=== PATIENT | female | born 1950 | race Caucasian/White ===

== ENCOUNTER 2025-04-04 11:53 | Observation (INO) ==
[2025-04-04] MEDS ORDERED: ULTRAM PO PRN (13:11)
[2025-04-04] MEDS ORDERED: MORPHINE SULFATE INJ 2 MG INJ IVP PRN (13:11)
[2025-04-04] MEDS ORDERED: TYLENOL 325 MG TAB PO PRN (13:11)
[2025-04-04 13:46] VITALS: BMI 35.4
[2025-04-04 14:58] LABS: MEAN PLATELET VOLUME 7.7 fL (7.4-11.0); RED CELL DISTRIBUTION WIDTH 16.1 % (11.6-16.5)
--- NOTE | 2025-04-04 15:10 | RAD ---
EXAM: CHEST, 1 VIEW HISTORY: sob; COMPARISON: No relevant prior studies were available for comparison at the time of interpretation. TECHNIQUE: CHEST, 1 VIEW FINDINGS: Chest: Lines and tubes: None Mediastinum: Cardiac and mediastinal shadow is within normal limits for size and contour. Pulmonary vessels: No pulmonary vascular congestion. Lung grossman: No suspicious airspace opacity. Pleura: No effusion. No pneumothorax. Bones and soft tissues: No acute osseous or soft tissue abnormality. IMPRESSION: 1. No acute cardiopulmonary abnormality THIS IS AN ELECTRONICALLY VERIFIED FINAL REPORT 04/04/2025 3:06 PM - Electronically signed by Jimmy Interiano MD
[2025-04-04 15:23] LABS: CREATININE 1.31 mg/dL (0.55-1.02); eGFR NON BLACK RACES 42 (>60)
[2025-04-04] MEDS: PROTONIX TAB 40 MG PO SCH (15:53)
[2025-04-04] MEDS: ROCEPHIN VIAL 1 GRAM 1 G in NS 100 ML IV 100 ML IV SCH (15:53)
[2025-04-04] MEDS: LASIX IVP ONE (17:42)
--- NOTE | 2025-04-04 17:44 | EKG ---
Test Reason : sob Blood Pressure : */* mmHG Vent. Rate : 79 BPM Atrial Rate : 79 BPM P-R Int : 144 ms QRS Dur : 82 ms QT Int : 382 ms P-R-T Axes : 58 6 58 degrees QTc Int : 438 ms Sinus rhythm with marked sinus arrhythmia Nonspecific ST abnormality Abnormal ECG No previous ECGs available Confirmed by Carson Ojeda MD ([id number]) on 04/05/2025 5:48:18 AM Referred By: Confirmed By: Carson Ojeda MD
[2025-04-04] MEDS: PULMICORT NEB TX 0.5 MG NEB SCH (21:00)
[2025-04-04] MEDS: DUONEB 0.5 MG/3 MG (3 mL) NEB SCH (21:00)
[2025-04-04] MEDS: NEURONTIN CAP 100 MG PO SCH (21:47)
[2025-04-04] MEDS: MIRAPEX TAB 0.25 MG PO SCH (21:47)
[2025-04-05] MEDS: NS 250 ML IV 250 ML IV ONE (03:42)
[2025-04-05 05:48] LABS: MEAN PLATELET VOLUME 8.0 fL (7.4-11.0); RED CELL DISTRIBUTION WIDTH 15.7 % (11.6-16.5)
[2025-04-05 06:06] LABS: COR CA(FOR HYPOALB) 9.4 mg/dL (8.5-10.1); COR NA(FOR HYPERGLY) 145.0 mmol/L (136-145); CREATININE 1.33 mg/dL (0.55-1.02); eGFR NON BLACK RACES 41.0 (>60)
[2025-04-05] MEDS: MAXZIDE 37.5/25 MG PO SCH (08:39)
[2025-04-05] MEDS: PAXIL PO SCH (08:39)
--- NOTE | 2025-04-05 08:54 | DR.H&P ---
H&P History & Physical for Day of: H&P Date: 04/05/25 Chief Complaint Chief Complaint: shortness of breath wheezing History of Present Illness History of Present Illness: Patient is a 74-year-old female with past medical history of hypertension, hypothyroidism, polymyalgia rheumatica, CKD, presenting as a direct admit after failing outpatient treatment for bronchiolitis and having lower extremity edema with suspicion of CHF. Patient does not have any cardiac history. She reports that for the past 3 weeks she has had worsening cough, congestion, and wheezing. She was treated with cefdinir and Tessalon Perles. She states that she is on chronic prednisone of 20 mg daily due to her polymyalgia rheumatica. She does report having for the past few days increased lower extremity swelling. She has taken Lasix in the past but then stopped taking it daily due to having hypotension. Denies any fevers or chills. Labs/imaging: WBC 10.1, hemoglobin 14.3, platelets 201, sodium 144, potassium 3.8, creatinine 1.31, glucose 81, BNP 119, chest x-ray did not reveal any acute cardio pulmonary findings. D-dimer negative. Will admit patient for bronchiolitis and CHF rule out. She does have a mildly elevated BNP. Will order an echo. Will start on IV antibiotics Rocephin 1 g daily. Scheduled bronchodilators. IV Solumedrol 40mg daily. Will also give IV Lasix 20 mg x 1 dose to reduce swelling in the lower extremities. Order AIT. Restart home medications. Otherwise continue with current treatment plan. Continue closely monitor and follow-up labs/imaging. Time spent for clinical assessment, reviewing labs/imaging, physical exam, decision making and documentation greater than 45 mins. Past Medical History Past Medical History: Hypertension, Hypothyroidism and Renal Disease Past Surgical History Surgical History: Hysterectomy Family History Family Medical History: Cancer Social History Does any household member use tobacco: No Alcohol Use: None Drug Use: None Medications Home Medications: Home Medications Medication Instructions Recorded Confirmed Type pantoprazole 40 mg tablet,delayed 40 mg PO QDAY 04/04/25 History release triamterene 37.5 1 cap PO QDAY 04/06/2204/04 History mg-hydrochlorothiazide 25 mg capsule verapamil 80 mg tablet 80 mg PO QDAY PRN 04/06/22 1 06/04/24 History atorvastatin 10 mg tablet See Rx Instructions .Route . COMPLEX 04/04/25 04/04/25 History docosahexaenoic acid (dha)-epa 1 cap PO QDAY 04/04/25 04/04/25 History capsule gabapentin 100 mg capsule 100 mg PO BID 04/04/2504/04 History levothyroxine 88 mcg tablet 88 mcg PO QDAY 04/04/25 History paroxetine HCl 10 mg tablet 10 mg PO QDAY 04/04/2505/17 History potassium chloride 20 mEq 20 meq PO BID HYPOKALEMIA 04/04/25 History tablet,extended release pramipexole 0.5 mg tablet 0.5 mg PO BID 04/04/2504/04 History prednisone 10 mg tablet 10 mg PO BID 04/04/25 History vitamin D3 25 mcg-vitamin K2 20 1 cap PO DAILY 5 04/04/25 History mcg-olive leaf extract 250 mg capsule Allergies Allergies Allergy/AdvReac Type Severity Reaction Status Date / Time azithromycin (From Zithromax) Allergy Verified 12/11/22 21:36 erythromycin base Allergy Verified 04/06/22 13:42 levofloxacin (From Levaquin) Allergy Verified 04/06/22 13:42 Penicillins Allergy Verified 04/06/22 13:42 Labs 04/05/25 05:26 04/05/25 05:26 Labs: Laboratory WBC 10.3 X10^3/uL (3.6-10.0) H 04/05/25 05:26 RBC 5.00 X10^6/uL (3.5-5.4) 04/05/25 05:26 Hgb 14.9 g/dL (12.0-16.0) 04/05/25 05:26 Hct 44.2 % (36.0-47.0) 04/05/25 05:26 MCV 88.4 fL (80.0-100.0) 04/05/25 05:26 MCH 29.7 pg (27.0-34.0) 04/05/25 05:26 MCHC 33.7 g/dL (33.0-35.0) 04/05/25 05:26 RDW 15.7 % (11.6-16.5) 04/05/25 05:26 Plt Count 222 X10^3/uL (150.0-450.0) 04/05/25 05:26 MPV 8.0 fL (7.4-11.0) 04/05/25 05:26 Neut % (Auto) 89.5 % (42.0-75.0) H 04/05/25 05:26 Lymph % (Auto) 8.2 % (21.0-51.0) L 04/05/25 05:26 [place] % (Auto) 1.7 % (0.0-13.0) 04/05/25 05:26 Eos % (Auto) 0.0 % (0.9-2.9) L 04/05/25 05:26 Baso % (Auto) 0.6 % (0.2-1.0) 04/05/25 05:26 Neut # (Auto) 9.2 x10^3/uL (2.2-4.8) H 04/05/25 05:26 Lymph # (Auto) 0.8 X10^3/uL (1.3-2.9) L 04/05/25 05:26 [place] # (Auto) 0.2 x10^3/uL (0.3-0.8) L 04/05/25 05:26 Eos # (Auto) 0.0 x10^3/uL (0.0-0.2) 04/05/25 05:26 Baso # (Auto) 0.1 X10^3/uL (0.0-0.1) 04/05/25 05:26 Absolute Nucleated RBC 0.1 /100WBC 04/05/25 05:26 D-Dimer 0.41 ug/ml (0.0-0.57) 04/04/25 14:45 Sodium 144 mmol/L (136-145) 04/05/25 05:26 Corrected Sodium 145 mmol/L (136-145) 04/05/25 05:26 Potassium 4.9 mmol/L (3.5-5.1) 04/05/25 05:26 Chloride 102 mmol/L (98-107) 04/05/25 05:26 Carbon Dioxide 34.9 mmol/L (21-32) H 04/05/25 05:26 BUN 19 mg/dL (7-18) H 04/05/25 05:26 Creatinine 1.33 mg/dL (0.55-1.02) H 04/05/25 05:26 Est GFR (MDRD) Af Amer 50 (>60) L 04/05/25 05:26 Est GFR (MDRD) Non-Af 41 (>60) L 04/05/25 05:26 Glucose 127 mg/dL (65-99) H 04/05/25 05:26 Calcium 8.8 mg/dL (8.5-10.1) 04/05/25 05:26 Corrected Calcium 9.4 mg/dL (8.5-10.1) 04/05/25 05:26 Magnesium 2.1 mg/dL (2.0-2.9) 04/04/25 14:45 Total Bilirubin 0.40 mg/dL (0.2-1.0) 04/05/25 05:26 AST 18 Units/L (15-37) 04/05/25 05:26 ALT 29 Units/L (12-78) 04/05/25 05:26 Alkaline Phosphatase 47 Units/L (46-116) 04/05/25 05:26 B-Natriuretic Peptide 119 pg/mL (0-79) H 04/04/25 14:45 Total Protein 6.4 g/dL (6.4-8.2) 04/05/25 05:26 Albumin 3.2 g/dL (3.4-5.0) L 04/05/25 05:26 Globulin 3.2 g/dL (2.5-4.5) 04/05/25 05:26 Albumin/Globulin Ratio 1.0 Ratio (1.1-2.1) L 04/05/25 05:26 Review of Systems Constitutional: No Symptoms Reported Eyes: No Symptoms Reported ENT: No Symptoms Reported Respiratory: Cough, Shortness of Breath and Wheezing Cardiovascular: No Symptoms Reported Gastrointestinal: No Symptoms Reported Genitourinary: No Symptoms Reported Musculoskeletal: No Symptoms Reported Skin: No Symptoms Reported Neurological: No Symptoms Reported Physical Exam Vital Signs: Vital Signs Temperature 97.3 F Pulse Rate [Right Radial] 63 Respiratory Rate 18 Blood Pressure [Left Arm] 108/67 O2 Sat by Pulse Oximetry 97 Oriented: Normal Eyes: Normal Ear: Normal Nose: Normal Throat: Normal Respiratory: Diminished Throughout and Wheezes Throughout (faint end expiratory) Cardiovascular: Edema (2+ b/l pitting edema) : Normal Auscultation: Bowel Sounds: Normal Palpation: Normal Tenderness: Normal Skin: Normal Musculoskeletal: Normal Psychiatric: Normal Mood Description: Calm and Appropriate Affect: Normal Speech Pattern: Clear and Appropriate Assessment/Plan (1) Bronchiolitis: Status: Acute (2) Elevated brain natriuretic peptide (BNP) level: Status: Acute (3) Lower extremity edema: Status: Acute (4) Hypothyroidism: Status: Acute (5) Polymyalgia rheumatica: Status: Acute (6) CKD (chronic kidney disease): Status: Acute (7) Hypertension: Status: Acute Review H&P Reviewed: Yes Patient was examined?: Yes
--- NOTE | 2025-04-05 10:25 | PCM.PROG ---
Progress Note Progress Note for Day of Date of Exam: 04/05/25 Subjective Subjective: Patient is a 74-year-old female with past medical history of hypertension, hypothyroidism, polymyalgia rheumatica, CKD, admitted bronchiolitis and CHF rule out. This morning she reports feeling a little better. She does continue to have some cough and feels like sometimes upper airway wheezing. No acute events overnight. She does report her leg swelling has improved. Labs/imaging: WBC 10.3, hemoglobin 14.9, platelets 222, sodium 144, potassium 4.9, creatinine 1.33, glucose 127, AIT pending. Echo pending. Due to continued symptoms will also get CT of the chest without contrast for further evaluation. Continue IV antibiotics Rocephin 1 g daily. Scheduled bronchodilators. IV Solumedrol 40mg daily. Will also give another IV Lasix 20 mg x 1 dose to reduce swelling in the lower extremities. Home medications have been resumed. Otherwise continue with current treatment plan. Continue closely monitor and follow-up labs/imaging. Time spent for clinical assessment, reviewing labs/imaging, physical exam, decision making and documentation greater than 45 mins. Past Medical Family Social History Allergies: Allergies azithromycin (From Zithromax) Allergy (Verified 12/11/22 21:36) erythromycin base Allergy (Verified 04/06/22 13:42) levofloxacin (From Levaquin) Allergy (Verified 04/06/22 13:42) Penicillins Allergy (Verified 04/06/22 13:42) Review of Systems ROS changes noted: see HPI Vital Signs and I&O's Vital Signs: Vital Signs Temperature 97.9 F Temperature 97.3 F Pulse Rate [Right Radial] 90 Pulse Rate [Right Radial] 63 Respiratory Rate 19 Respiratory Rate 18 Blood Pressure [Left Arm] 119/79 Blood Pressure [Left Arm] 108/67 O2 Sat by Pulse Oximetry 96 O2 Sat by Pulse Oximetry 94 O2 Sat by Pulse Oximetry 97 Intake and Output: Intake & Output 04/02/25 04/03/25 04/04/25 04/05/25 23:59 23:59 23:59 23:59 Intake Total Balance Physical Exam Oriented: Normal Eyes: Normal Ear: Normal Nose: Normal Throat: Normal Respiratory: Diminished Cardiovascular: Edema (1+ b/l pitting edema) : Normal Auscultation: Bowel Sounds: Normal Tenderness: Normal Skin: Normal Musculoskeletal: Normal Psychiatric: Normal Mood Description: Calm and Appropriate Affect: Normal Speech Pattern: Clear and Appropriate Laboratory and Diagnostics 04/05/25 05:26 04/05/25 05:26 Labs: Laboratory WBC 10.3 X10^3/uL (3.6-10.0) H 04/05/25 05:26 RBC 5.00 X10^6/uL (3.5-5.4) 04/05/25 05:26 Hgb 14.9 g/dL (12.0-16.0) 04/05/25 05:26 Hct 44.2 % (36.0-47.0) 04/05/25 05:26 MCV 88.4 fL (80.0-100.0) 04/05/25 05:26 MCH 29.7 pg (27.0-34.0) 04/05/25 05:26 MCHC 33.7 g/dL (33.0-35.0) 04/05/25 05:26 RDW 15.7 % (11.6-16.5) 04/05/25 05:26 Plt Count 222 X10^3/uL (150.0-450.0) 04/05/25 05:26 MPV 8.0 fL (7.4-11.0) 04/05/25 05:26 Neut % (Auto) 89.5 % (42.0-75.0) H 04/05/25 05:26 Lymph % (Auto) 8.2 % (21.0-51.0) L 04/05/25 05:26 [place] % (Auto) 1.7 % (0.0-13.0) 04/05/25 05:26 Eos % (Auto) 0.0 % (0.9-2.9) L 04/05/25 05:26 Baso % (Auto) 0.6 % (0.2-1.0) 04/05/25 05:26 Neut # (Auto) 9.2 x10^3/uL (2.2-4.8) H 04/05/25 05:26 Lymph # (Auto) 0.8 X10^3/uL (1.3-2.9) L 04/05/25 05:26 [place] # (Auto) 0.2 x10^3/uL (0.3-0.8) L 04/05/25 05:26 Eos # (Auto) 0.0 x10^3/uL (0.0-0.2) 04/05/25 05:26 Baso # (Auto) 0.1 X10^3/uL (0.0-0.1) 04/05/25 05:26 Absolute Nucleated RBC 0.1 /100WBC 04/05/25 05:26 D-Dimer 0.41 ug/ml (0.0-0.57) 04/04/25 14:45 Sodium 144 mmol/L (136-145) 04/05/25 05:26 Corrected Sodium 145 mmol/L (136-145) 04/05/25 05:26 Potassium 4.9 mmol/L (3.5-5.1) 04/05/25 05:26 Chloride 102 mmol/L (98-107) 04/05/25 05:26 Carbon Dioxide 34.9 mmol/L (21-32) H 04/05/25 05:26 BUN 19 mg/dL (7-18) H 04/05/25 05:26 Creatinine 1.33 mg/dL (0.55-1.02) H 04/05/25 05:26 Est GFR (MDRD) Af Amer 50 (>60) L 04/05/25 05:26 Est GFR (MDRD) Non-Af 41 (>60) L 04/05/25 05:26 Glucose 127 mg/dL (65-99) H 04/05/25 05:26 Calcium 8.8 mg/dL (8.5-10.1) 04/05/25 05:26 Corrected Calcium 9.4 mg/dL (8.5-10.1) 04/05/25 05:26 Magnesium 2.1 mg/dL (2.0-2.9) 04/04/25 14:45 Total Bilirubin 0.40 mg/dL (0.2-1.0) 04/05/25 05:26 AST 18 Units/L (15-37) 04/05/25 05:26 ALT 29 Units/L (12-78) 04/05/25 05:26 Alkaline Phosphatase 47 Units/L (46-116) 04/05/25 05:26 B-Natriuretic Peptide 119 pg/mL (0-79) H 04/04/25 14:45 Total Protein 6.4 g/dL (6.4-8.2) 04/05/25 05:26 Albumin 3.2 g/dL (3.4-5.0) L 04/05/25 05:26 Globulin 3.2 g/dL (2.5-4.5) 04/05/25 05:26 Albumin/Globulin Ratio 1.0 Ratio (1.1-2.1) L 04/05/25 05:26 Plan (1) Bronchiolitis: Status: Acute (2) Elevated brain natriuretic peptide (BNP) level: Status: Acute (3) Lower extremity edema: Status: Acute (4) Hypothyroidism: Status: Acute (5) Polymyalgia rheumatica: Status: Acute (6) CKD (chronic kidney disease): Status: Acute (7) Hypertension: Status: Acute
[2025-04-05] MEDS: LASIX IVP ONE (10:49)
[2025-04-05] MEDS: [UNRECOGNIZED DRUG - OTHER] AFFEYE SCH (11:30)
--- NOTE | 2025-04-05 11:52 | CT ---
EXAM: CT CHEST WITHOUT CONTRAST HISTORY: WHEEZING, SOB; COMPARISON: None. TECHNIQUE: Axial CT images were obtained through the chest without contrast. Coronal reformatted images were included. All CT scans at this facility use dose modulation, iterative reconstruction, and/or weight based dosing when appropriate to reduce radiation dose to as low as reasonably achievable. FINDINGS: SUPPORT DEVICES: None HEART, VESSELS, AND MEDIASTINUM: Athero sclerotic disease seen in the aorta and coronary vessels LYMPH NODES: No pathologically enlarged nodes. LUNGS AND PLEURA: Lungs show no focal pneumonia. Areas of bandlike atelectasis versus scarring of the lung bases. Elevated left hemidiaphragm AIRWAYS: Within normal limits. UPPER ABDOMEN: Scattered benign renal cysts BONES: Within normal limits. IMPRESSION: No evidence of focal pneumonia or significant reactive airways disease. Minimal areas of bandlike scarring versus subsegmental atelectasis of the lung bases with a elevated left hemidiaphragm THIS IS AN ELECTRONICALLY VERIFIED FINAL REPORT 04/05/2025 11:49 AM - Electronically signed by Greg Steele MD
[2025-04-05] MEDS: NORCO 5/325 MG TAB PO PRN (16:37)
[2025-04-06 06:02] LABS: MEAN PLATELET VOLUME 8.0 fL (7.4-11.0); RED CELL DISTRIBUTION WIDTH 15.7 % (11.6-16.5)
[2025-04-06 06:25] LABS: COR CA(FOR HYPOALB) 9.7 mg/dL (8.5-10.1); CREATININE 1.47 mg/dL (0.55-1.02); eGFR NON BLACK RACES 37 (>60)
[2025-04-06] MEDS: LIPITOR TAB 10 MG PO SCH (08:44)
[2025-04-06] MEDS: TUSSIONEX PENNKINETIC SUSP PO NR (10:04)
[2025-04-06 11:38] VITALS: BP 120/80; PULSE 83; RESP 18; TEMP 97.8; O2SAT 92
[2025-04-06 12:24] LABS: MEAN PLATELET VOLUME 7.6 fL (7.4-11.0); RED CELL DISTRIBUTION WIDTH 15.9 % (11.6-16.5)
[2025-04-06] MEDS ORDERED: TUSSIONEX PENNKINETIC SUSP PO PRN (21:00)
[2025-04-07] MEDS ORDERED: PREDNISONE TAB 10 MG PO SCH (21:00)
== END 2025-04-06 14:05 | disposition home or self-care (01) ==
LOC: MED/SURG
PROVIDERS: ADMIT Internal Medicine; ATTEND Internal Medicine
DX: R94.4 Abnormal results of kidney function studies; E03.8 Other specified hypothyroidism; D72.828 Other elevated white blood cell count; R79.89 Other specified abnormal findings of blood chemistry; R73.09 Other abnormal glucose; B95.3 Streptococcus pneumoniae as the cause of diseases classified elsewhere; J21.8 Acute bronchiolitis due to other specified organisms; R60.0 Localized edema; N18.9 Chronic kidney disease, unspecified; Z59.868 Other specified financial insecurity; Z16.29 Resistance to other single specified antibiotic; M35.3 Polymyalgia rheumatica; R06.02 Shortness of breath; Z66 Do not resuscitate; R94.31 Abnormal electrocardiogram [ECG] [EKG]; I12.9 Hypertensive chronic kidney disease with stage 1 through stage 4 chronic kidney disease, or unspecified chronic kidney disease